=== PATIENT | female | born 1985 | race Caucasian/White ===

== ENCOUNTER 2021-10-19 19:38 | Emergency (ER) | payer OTHER | END 2021-10-19 22:30 | disposition home or self-care (01) | LOC: FER 19:38 | DX: R09.89 Other specified symptoms and signs involving the circulatory and respiratory systems (principal); R06.02 Shortness of breath; R05.9 Cough, unspecified; T45.0X5A Adverse effect of antiallergic and antiemetic drugs, initial encounter | CPT/HCPCS: 99283; J1100 ==